=== PATIENT | male | born 1970 | race Caucasian/White ===

== ENCOUNTER → 2016-10-12 | Outpatient (CLI) | payer OTHER | END | disposition home or self-care (01) | LOC: NUC 09-24 13:00 | DX: R10.11 Right upper quadrant pain (principal) | CPT/HCPCS: 78227; A9537; J2805 ==

== ENCOUNTER 2016-11-18 12:15 | Day surgery (SDC) | payer OTHER ==
[~2016-11-18] VITALS: Ht 175.3 cm; Wt 107.0 kg
[~2016-11-18 12:15] MED LIST: DIOVAN160 MG PO; PROTONIX40 MG PO
[2016-11-18 13:08] VITALS: BP 132/80
[2016-11-18] MEDS ORDERED: ULTRAM50 MG PO (16:42)
[2016-11-18 17:54] VITALS: BP 107/70
== END 2016-11-18 17:50 | disposition home or self-care (01) ==
LOC: SDC 12:15
PROC: 0WQF0ZZ Repair Abdominal Wall, Open Approach (ICD-10-PCS; principal; 2016-11-18)
DX: K42.9 Umbilical hernia without obstruction or gangrene (principal); I10 Essential (primary) hypertension; J45.909 Unspecified asthma, uncomplicated; Z72.0 Tobacco use; K21.9 Gastro-esophageal reflux disease without esophagitis
CPT/HCPCS: C1781; J0690; J1885; J2250; J2405; J3010; S0020